=== PATIENT | male | born 1965 | race Caucasian/White ===

== ENCOUNTER → 2023-10-13 18:00 | Outpatient (REF) | payer BC, SELFPAY ==
--- NOTE | 2023-10-10 10:12 | PN.DIAED02 ---
Referral
DSME Class Series Code: [id number]
Referred For: Diabetes Self-Management Training
PHI Release Authorization Form Signed: Yes
Demographic
(1) Type 2 diabetes mellitus
Status: Acute Code(s): E11.9 - Type 2 diabetes mellitus without complications
Patient's primary language-: Syriac
Education: Some college
Occupation: Professional (applications trainer)
Hours Worked/Week: 20-40 (40)
- Social
Primary Support Person: Self & significant other
Primary Care Takers: Self
Living Arrangements: Self & significant other
- Learning Methods
Preferred Method: Reading, Hands-on demonstration, Video, Group discussion
Barriers to Learning: None
Glycemic Control
- Blood Glucose Monitoring Assessment
Date: 10/10/23
Blood glucose monitoring at home: Yes
Monitor Brands: [employer] (Ana 3 CGM)
Frequency: >4x per day
Time: fasting, before breakfast, after breakfast, before lunch, after lunch, before dinner, after dinner, bedtime
- Hemoglobin A1c
Date: 12/14/22
A1C Percentage (%): 7.3
Medical History of Diabetes
Family Diabetes History: Father
Previous Diabetes Education: Yes
How long ago?: 1-5 years ago (in dr office)
Previous visit with Dietitian: No
Complications/Comorbidity/Specialist: Hyperlipidemia
Measures
- Anthropometrics
Height: 5 ft 11 in
Actual Weight: 254 lb 6 oz
- Blood Pressure / Pulse
Blood pressure: 112/70
- Diabetes Management
Medical Management for Diabetes: Complete physical exam (12/12/22), Dental exam (05/27/22), Dilated eye exam (07/04/23), Foot exam (12/12/22)
Self-Care
- Tobacco Usage
Do you now, or have you ever smoked?: Never smoked
- Alcohol & Drugs Usage
Drinks Alcohol: No
- Meals & Dining
Meals & Dining: Patient skips meals: Yes (breakfast 1-2 x/week), Food Intolerance / Allergy: No, Cultural / Jain Dietary Needs: No
Primary Food Binman: Self & significant other
Primary Sediment Remediation Consultant: Self
Dining Out Frequency: 4-6x per week (5)
- Physical Activity
Physical Limitation: No
Patient participates in physical Activity: No
- Patient-Self Assessment
Diabetes Knowledge: Fair
Feelings About Diabetes: Adaptation
General Health: Fair
Importance of Health: Somewhat
Stress Level: Medium
Diabetes Interferes With:: Nothing
Depression Survey Score: 3
Care Plan
- Education Needs
Patient Education Needs: Diabetes disease process, Chronic complications, Acute complications, Medication, Monitoring, Physical activity, Psychosocial Adjustment, Nutritional management, Goal setting & problem solving
Recommended Diabetes Training Program based on assessment: Outpatient Diabetes Education Program
- Plan of Care
Plan of Care:
History T2DM for approx 3 yrs. Has the Ana 3 CGM (currently not wearing but picked up from pharmacy). Also has a working glucometer at home. States FBS typically 110-130 and most of 2 hr post prandials are not above 150 mg/dl. Some do go into the
200's. explained when BS are that elevated, to review what he just ate and reduce the serving sizes of CHO. He states he does have issues with eating the proper serving size, suggestions given: put less on plate, eat slowly to recognize fullness,
share take out/restuarant meals. Taking [id number] mg QD and recently re-started Ozempic weekly (dose unknown).Goals established including exercise and to make a dental appointment. Handout on expected results given as well as snack options. Phone
number/email provided for follow up questions. SO Noreen to attend as support, directions to classroom given.
--- NOTE | 2023-10-10 10:37 | PN.DIAED04 ---
Education Record
- Education Record
Class Attended: Class 1 (pre registration 10/10/23 for outpt DSME classes starting 10/13/23.)
DSME Class Series Code: [id number]
Instructor: Registered Nurse (Rosy Aguiar, RN, BSN, [facility])
Class Curriculum:
Outpatient Diabetes Education Program:
Initial Assessment (45 minutes)
Individualized assessment
Develop personal strategies to promote health and behavior change
Development of diabetes self-management support plan
Class Length (mins): 45
Pre-Program Knowledge: Needs review / Assistance
Pre-Test Score (%): 65
Goals
- Goal 1
Being Active: Exercise 30 minutes-5 times per week (Goal is to walk)
Goals To Be Evaluated: Exercise 30 mins-5x/week
- Goal 2
Healthy Eating: Make better food choices, Follow meal plan, Reduce portion sizes
Goals To Be Evaluated: Make better food choices. Follow meal plan. Reduce portion sizes
- Goal 3
Monitoring: Follow monitoring schedule
Goals To Be Evaluated: Follow monitoring times
--- NOTE | 2023-10-15 08:24 | PN.DIAED04 ---
Education Record
- Education Record
Class Attended: Class 1
DSME Class Series Code: [id number]
Instructor: Registered Nurse (Rosy Aguiar, RN, BSN, CDE)
Class Length (mins): 120
Post-Class 1 Test Score (%): 100
--- NOTE | 2023-10-15 08:24 | PN.DIAED14 ---
This is to notify you that your patient with diabetes, MALINI CAMACHO ( 1965), has enrolled in our diabetes self-management classes that are being held at [facility].
These classes will include an introduction to diabetes, diet, medication, exercise and prevention of complications. At the end of our class series, you will receive a report of your patient's participation and progress for your records.
Please contact me at the Diabetes Center, , if there is any particular information regarding your patient that might be helpful to me.
Sincerely,
AGUSTIN Rueda-, [facility]
Diabetes & Nutrition Services Director
--- NOTE | 2023-10-16 14:27 | PN.DIAED06 ---
Meal Plans - Regular
- Meal Plan
Diabetic Meal Plan Name: 2000 calories
Breakfast - Total Carbohydrate (grams): 45
Breakfast - Starch Carbohydrate: 0
Breakfast - Fruit Carbohydrate: 0
Breakfast - Milk Carbohydrate: 0
Breakfast - Nonstarchy Vegetables: Yes
Breakfast - Meat/Protein: 1
Breakfast - Fat: 2
Morning Snack - Total Carbohydrate (grams): 30
Morning Snack - Starch Carbohydrate: 0
Morning Snack - Fruit Carbohydrate: 0
Morning Snack - Milk Carbohydrate: 0
Morning Snack - Nonstarchy Vegetables: Yes
Morning Snack - Meat/Protein: 0.5
Morning Snack - Fat: 0
Lunch - Total Carbohydrate (grams): 45
Lunch - Starch Carbohydrate: 0
Lunch - Fruit Carbohydrate: 0
Lunch - Milk Carbohydrate: 0
Lunch - Nonstarchy Vegetables: Yes
Lunch - Meat/Protein: 3
Lunch - Fat: 1
Afternoon Snack - Total Carbohydrate (grams): 30
Afternoon Snack - Starch Carbohydrate: 0
Afternoon Snack - Fruit Carbohydrate: 0
Afternoon Snack - Milk Carbohydrate: 0
Afternoon Snack - Nonstarchy Vegetables: Yes
Afternoon Snack - Meat/Protein: 0.5
Afternoon Snack - Fat: 0
Dinner - Total Carbohydrate (grams): 45
Dinner - Starch Carbohydrate: 0
Dinner - Fruit Carbohydrate: 0
Dinner - Milk Carbohydrate: 0
Dinner - Nonstarchy Vegetables: Yes
Dinner - Meat/Protein: 4
Dinner - Fat: 2
Evening Snack - Total Carbohydrate (grams): 15
Evening Snack - Starch Carbohydrate: 0
Evening Snack - Fruit Carbohydrate: 0
Evening Snack - Milk Carbohydrate: 0
Evening Snack - Nonstarchy Vegetables: Yes
Evening Snack - Meat/Protein: 0
Evening Snack - Fat: 0
== END ==
LOC: DES 18:00
PROVIDERS: ATTENDING PHYSICIAN Internal Medicine
DX: E11.9 Type 2 diabetes mellitus without complications (principal)
CPT/HCPCS: 99078

== ENCOUNTER → 2023-10-20 18:00 | Outpatient (REF) | payer BC, SELFPAY ==
--- NOTE | 2023-10-22 08:19 | PN.DIAED04 ---
Education Record
- Education Record
Class Attended: Class 2
[facility] Class Series Code: [id number]
Instructor: Registered Dietitian (Chelsea Terrazas, ALIYAHN, LDN)
Class Length (mins): 120
== END ==
LOC: DES 18:00
PROVIDERS: ATTENDING PHYSICIAN Internal Medicine
DX: E11.9 Type 2 diabetes mellitus without complications (principal)
CPT/HCPCS: 99078

== ENCOUNTER → 2023-10-27 18:00 | Outpatient (REF) | payer BC, SELFPAY ==
--- NOTE | 2023-10-29 08:47 | PN.DIAED04 ---
Education Record
- Education Record
Class Attended: Class 3
DSME Class Series Code: [id number]
Instructor: Registered Dietitian (Federica Rubin, RD, LDN, CDE)
Class Length (mins): 120
Post-Class 2 & 3 Test Score (%): 88
== END ==
LOC: DES 18:00
PROVIDERS: ATTENDING PHYSICIAN Internal Medicine
DX: E11.9 Type 2 diabetes mellitus without complications (principal)
CPT/HCPCS: 99078

== ENCOUNTER → 2023-11-03 18:00 | Outpatient (REF) | payer BC, SELFPAY ==
--- NOTE | 2023-11-05 12:50 | PN.DIAED04 ---
Education Record
- Education Record
Class Attended: Class 4
DSME Class Series Code: [id number]
Instructor: Registered Nurse (Rosy Aguiar, RN, BSN, CDE)
Class Length (mins): 120
Post-Class 4 Test Score (%): 93
== END ==
LOC: DES 18:00
PROVIDERS: ATTENDING PHYSICIAN Internal Medicine
DX: E11.9 Type 2 diabetes mellitus without complications (principal)
CPT/HCPCS: 99078

== ENCOUNTER → 2023-11-10 18:00 | Outpatient (REF) | payer BC, SELFPAY ==
--- NOTE | 2023-11-12 14:16 | PN.DIAED16 ---
This is to notify you that your patient with diabetes, MALINI CAMACHO ( 1965), has attended the entire series of Diabetes Self-Management Education Classes.
Class 1 (120 minutes): Diabetes Overview - monitoring, stress/psychosocial adjustment, support, goal setting
Class 2 (120 minutes): Meal Planning - serving sizes, menu plans
Class 3 (120 minutes): Introduction to Carbohydrate Counting, Analyzing Food Labels
Class 4 (120 minutes): Medication, Exercise and Activity
Class 5 (120 minutes): Sick Day Management, Strategies to Reduce Complications, Problem Solving, Resources
The following behavioral goals were identified:
Exercise 30 mins-5x/week
Make better food choices
Follow meal plan
Reduce portion sizes
Follow monitoring times
A follow-up call will be made within three to six months to evaluate attainment of these goals and to check post-program Hemoglobin A1c and overall progress. All class participants are encouraged to contact me if I can be any further assistance in
learning how to manage their diabetes.
Sincerely,
AGUSTIN Rueda-, [facility]
Diabetes & Nutrition Services Director
== END ==
LOC: DES 18:00
PROVIDERS: ATTENDING PHYSICIAN Internal Medicine
DX: E11.9 Type 2 diabetes mellitus without complications (principal)
CPT/HCPCS: 99078

== ENCOUNTER 2024-08-08 11:16 | Emergency (ER) | payer BC, SELFPAY ==
[2024-08-08 11:22] VITALS: BP 138/97
[2024-08-08 11:59] VITALS: BMI 34.9
--- NOTE | 2024-08-08 12:01 | ED.GENMED ---
History of Present Illness
General
Chief Complaint: Heart Rate Problem
Source: patient
Exam Limitations: none
Time Seen by Provider: 08/08/24 12:00
Nursing documentation reviewed up to this point in time: agreed with
History of Present Illness
History of Present Illness:
58-year-old male with history of HTN, HLD, NIDDM, episode a-fib noted 3 yrs ago as he was being prepped for cervical spine surgery, states he came to ED, got something in my IV that slowed my heart rate, had Holter monitor for a week and not put on
medication. Has had no further episodes until about a week ago started to feel 'funny feeling in my chest and my heart was beating really fast,' intermittently lasting no more than a few hours at a time. Episodes are getting more frequent with SOB
going up and down stairs past few days. Denies CP, abd pain. Does feel a little lightheaded intermittently. Denies n/v/d/c. Not anticoagulated.
Past History
Past History
ED Past Medical History: Hypercholesterolemia and NIDDM
ED Past Surgical History: Other (Hernia repair, wisdom teeth)
Social History
Tobacco: Non-smoker
Alcohol: None
Drug: None
Personal:
Living: with family
Employment: Employed
Review of Systems
Review of Systems
Allergies reviewed?: Yes
All Other Systems: ROS reviewed and negative except as documented in HPI and ROS
Constitutional: Denies fever or fatigue
Respiratory: Reports trouble breathing (Discussed dyspnea on exertion intermittently, no SOB currently)
Cardiac: Reports palpitations (Intermittent as described in HPI, does not feel them at this time)
ABD/GI: Denies abdominal pain, nausea, vomiting, diarrhea or anorexia
: Denies dysuria, frequency or difficulty voiding
Musculoskeletal: Reports no symptoms
Skin: Reports no symptoms
Neurological: Reports no symptoms
Phy Exam
Physical Exam
Physical Exam:
GENERAL: No acute distress. A&Ox3.
CONSTITUTIONAL: Afebrile.
EYES: clear, conjunctivae normal
ENMT: moist mucus membranes
RESPIRATORY: Regular respirations, nonlabored, lungs clear.
CARDIOVASCULAR: Regular rate and rhythm, no murmurs, no rubs.
GI: Soft, nontender, normal BS
MUSCULOSKELETAL: Moves with ease. Well perfused.
SKIN: Warm, dry, pink
PSYCH: Normal mood and affect. Well kept, interactive and appropriate
NEUROLOGIC: Awake, alert and oriented. No focal neurological deficits
Scores
[id number] Score for Afib Stroke Risk
Age in Years (65=0, 65-74=1, >/=75=2): <65
Sex (Female=+1): Male
Congestive Heart Failure History (Yes=+1): No
Hypertension History (Yes=+1): Yes
Stroke/TIA/Thromboembolism History (Yes=+2): No
Vascular Disease History (Yes=+1): No
Diabetes Mellitus (Yes=+1): Yes
Score: 2
Anticoagulation Recommendations: Recommend anticoagulation (as validated in nonvalvular fib)
Course
Orders/Labs/Results
Orders:
Orders
08/08/24 11:20
Electrocardiogram (*1) Urgent
Reason for Study: Atrial Fibrillation
08/08/24 11:21
EKG- Treatment ONCE
08/08/24 12:10
CR Chest - 2 Views Urgent
Comment:
Reason For Exam: in and out of afib
08/08/24 12:20
B-Hydroxybutyrate Urgent
Comment: B HYDROXYBUTERATE ADDED ON BY FLOOR 1PM 08-08-24
Basic Metabolic Panel Urgent
Complete Blood Count/With Diff Urgent
TSH Urgent
08/08/24 13:09
Add On - Microbiology Urgent
Tests Added?: Hgb A1C
08/08/24 14:19
Troponin I Urgent
08/08/24 14:56
Apixaban [Eliquis] 10 mg PO NOW STA
08/08/24 15:04
Apixaban [Eliquis] 5 mg PO NOW STA
Abnormal Lab Results
08/08/24
12:20
Absolute Monos (auto) 0.7 H 10^3/uL
(0.1-0.6)
Lymphocytes % 18.6 L %
(20.5-51.1)
Sodium 134 L mmol/L
(135-145)
Chloride 96 L mmol/L
(98-107)
Glucose 352 H mg/dl
(70-99)
B-Hydroxybutyrate 0.37 H mmol/L
(0.02-0.27)
08/08/24 12:20
08/08/24 12:20
Vital Signs
Initial and Last Documented VS:
Initial Vital Signs
Temp Pulse Resp BP Pulse Ox
97.9 F 83 18 138/97 100
08/08/24 11:22 08/08/24 11:22 08/08/24 11:22 08/08/24 11:22 08/08/24 11:22
Last Documented Vital Signs
Temp Pulse Resp BP Pulse Ox
97.9 F 87 18 125/79 97
08/08/24 11:22 08/08/24 14:30 08/08/24 14:30 08/08/24 14:00 08/08/24 14:00
MDM/Problems Addressed
Differential Diagnosis Includes:
Afib, Afib w RVR, paroxysmal Afib
MDM/Problems Addressed:
58-year-old male with history of HTN, HLD, NIDDM, episode a-fib noted 3 yrs ago as he was being prepped for cervical spine surgery, states he came to ED, got something in my IV that slowed my heart rate, had Holter monitor for a week and not put on
medication. Has had no further episodes until about a week ago started to feel 'funny feeling in my chest and my heart was beating really fast,' intermittently lasting no more than a few hours at a time. Episodes are getting more frequent with SOB
going up and down stairs past few days. Denies CP, abd pain. Does feel a little lightheaded intermittently. Denies n/v/d/c. Not anticoagulated.
Afebrile, NAD
EKG NSR
It is unsure how long he's been in afib, CHADSVASC score 2
1:00 p.m.
CBC normal
CMP glucose 352 otherwise unremarkable.
Informed by laboratory that his blood is 'like a strawberry milkshake,' due to high cholesterol, they have to spin it down to get a troponin. No real indication for Troponin as he has no true chest pain.
He has been told this before about his blood, states his triglycerides are always 'through the roof' grandmother and sister with same.
States he has Insulin at home he uses occasionally , admits he does not follow a good diabetic diet, has been through the Diabetes Classes, knows what he should be doing but 'I'm an idiot, I don't do what I should.'
1:50 p.m.
Pt remains NSR on bedside monitor
Troponin: cancelled
TSH Normal
CXR: NAD
Pt is supposed to be taking Lantus 30 U SQ BID which he has not been taking.
He is supposed to wear his [employer] Ana which he doesn't
He was supposed to f/u with cardiology 6 months after his last bout of afib which he didn't
Consulted Dr. Karen Dewitt who requests starting on blood thinner, he should be seen in the office next week
Sent message to Cardiology hotline
Pt states he has enough insulin at home and will put his Ana back on and use is. He will start his Lantus 30 U BID again.
*Critical Care Note
Total Time (30-74mins, 75-104mins- exclusive of procedures): Not Applicable
ED Attending Note
-
Portions of this chart may have been created with voice recognition software.� Occasional wrong word or��sound alike� substitutions may have occurred due to the inherent limitations of voice recognition software.
Discharge Plan
Departure
Patient Disposition: Home (Routine Discharge)
Date of Disposition: 08/08/24
Time of Disposition: 14:57
Patient with high blood pressure during this ER visit?: No
Condition: Fair
Discharge Problem:
AF (paroxysmal atrial fibrillation), Noncompliance with diabetes treatment, Type 2 diabetes mellitus, Hyperglycemia
Instructions: Atrial Fibrillation (DC), Type 2 diabetes - Discharge instructions, Chest Pain DCA Follow Up
Prescriptions:
New
Eliquis 5 mg tablet
5 mg PO BID Qty: 60 0RF
No Action
gabapentin 300 MG capsule
600 mg PO TID
atorvastatin 80 MG tablet
80 mg PO QPM
aspirin 81 MG tablet,delayed release (DR/EC)
81 mg PO DAILY
lisinopril 5 MG tablet
5 mg PO DAILY
ezetimibe 10 MG tablet
10 mg PO DAILY
dapagliflozin propanediol [Farxiga] 10 MG tablet
10 mg PO DAILY
metoprolol succinate 25 MG tablet extended release 24 hr
25 mg PO DAILY Qty: 30 0RF
ascorbic acid (vitamin C) [Vitamin C] 500 MG tablet
1,000 mg PO BID Qty: 56 0RF
Rx Instructions:
Take 1,000 mg twice a day for 14 days
aspirin 81 MG tablet,chewable
81 mg PO DAILY Qty: 14 0RF
Rx Instructions:
Take 81 mg daily for 14 days
zinc sulfate 220 MG capsule
220 mg PO DAILY Qty: 14 0RF
Rx Instructions:
Take 220 mg daily for 14 days
cholecalciferol (vitamin D3) 1,000 UNITS tablet
2,000 units PO DAILY Qty: 28 0RF
Rx Instructions:
Take 2,000 units daily for 14 days
Referrals:
Joo Pittman MD [Family Provider] -
Carlos Cormier MD [Active] - Next open appointment
Activity Restrictions/Additional Instructions:
As we discussed, someone from the Cardiology office will call you in the next 1-2 days. I spoke with Dr. Dewitt and she wants you to be seen this week in office.
Start your Lantus 30 U twice daily as ordered
Wear your Ana and monitor your blood sugars closely.
I sent a prescription to your pharmacy for Eliquis to take 5 m twice a day.
Follow up this week with the lumber driver.
If your heart rate goes up again before you see the lumber driver, you may take an extra Metoprolol
Return here immediately for chest pain, rapid heart rate that does not slow or is associated with shortness of breath, chest pain, feeling dizzy or lightheaded/faint.
Interventions
Interventions:
*Risk Screen - Suicide Last Done: 08/08/24 11:22
*General Assessment Last Done: 08/08/24 11:22
*Neglect/Abuse Screening Last Done: 08/08/24 11:22
ED- Fall Risk Assessment Last Done: 08/08/24 14:15
*ED COVID-19 Vaccine History Last Done: 08/08/24 11:59
ED- Cardiac Assessment Last Done: 08/08/24 14:15
ED- Pulmonary Assessment Last Done: 08/08/24 14:17
Discharge Date and Time
Print Language: SERBIAN
[2024-08-08 12:16] VITALS: BP 124/74
[2024-08-08 12:26] LABS: % Basophils 0.9 % (0-2); % Eosinophils 2.1 % (0-6); % Immature Granulocytes 0.4 % (0-0.5); % Lymphocytes 18.6 % (20.5-51.1); % Monocytes 9.1 % (1.7-9.3); % Neutrophils 68.9 % (42.2-75.2); Absolute Basophils 0.1 10^3/uL (0-0.2); Absolute Eosinophils 0.2 10^3/uL (0-0.7); Absolute Lymphocytes 1.5 10^3/uL (1.2-3.4); Absolute Monocytes 0.7 10^3/uL (0.1-0.6); Absolute Neutrophils 5.6 10^3/uL (1.4-6.5); Hematocrit 47.4 % (39.0-52.0); Hemoglobin 17.5 g/dL (13.0-18.0); Mean Corp Hgb Conc. 36.9 g/dL (33.0-37.0); Mean Corpuscular Hgb 30.8 pg (27.0-31.0); Mean Corpuscular Volume 83.5 fL (80.0-94.0); Mean Platelet Volume 9.9 fL (7.4-10.4); Nucleated Red Blood Cells % 0 % (-); Platelet Count 211 10^3/uL (130-400); Red Blood Cell Count 5.68 10^6/uL (4.70-6.10); Red Cell Dist. Width 11.9 % (11.5-14.5); White Blood Cell Count 8.1 10^3/uL (4.8-10.8)
[2024-08-08 12:53] LABS: Blood Urea Nitrogen 13 mg/dl (9-20); Carbon Dioxide 26 mmol/L (22-30); Chloride 96 mmol/L (98-107); Estimated Creatinine Clearance 112 ml/min; Glucose 352 mg/dl (70-99); Sodium 134 mmol/L (135-145); eGFR > 60.00
[2024-08-08 13:16] LABS: TSH 1.33 uIU/ml (0.47-4.68)
[2024-08-08 14:00] VITALS: BP 125/79
[2024-08-08 14:30] LABS: B-Hydroxybutyrate 0.37 mmol/L (0.02-0.27)
[2024-08-08] MEDS: ELIQUIS 5 MG PO (15:14)
== END 2024-08-08 15:48 | disposition home or self-care (01) ==
LOC: EMR 11:16
PROVIDERS: Registered Nurse; EMERGENCY PHYSICIAN Emergency Medicine; FAMILY PHYSICIAN Internal Medicine
DX: I48.0 Paroxysmal atrial fibrillation (principal); E11.65 Type 2 diabetes mellitus with hyperglycemia; E78.00 Pure hypercholesterolemia, unspecified; I10 Essential (primary) hypertension; Z79.4 Long term (current) use of insulin; Z91.148 Patient's other noncompliance with medication regimen for other reason
CPT/HCPCS: 99285; 71046; 80048; 82010; 84443; 85025; 93005

== ENCOUNTER → 2024-09-01 07:03 | Outpatient (REF) | payer BC, SELFPAY | LOC: RCS 07:03 | PROVIDERS: ATTENDING PHYSICIAN Internal Medicine Cardiovascular Disease; FAMILY PHYSICIAN Internal Medicine | DX: I48.0 Paroxysmal atrial fibrillation (principal) | CPT/HCPCS: 93306 ==